=== PATIENT | female | born 1975 | race Two or more races ===

== ENCOUNTER 2016-10-29 13:52 | Emergency (ER) | payer OTHER ==
[2016-10-29 14:07] VITALS: TEMP 98.4
[2016-10-29] MEDS ORDERED: HYDROmorphONE/DILAUDID 1 MG/ML SYR IVP ONE (14:22)
[2016-10-29] MEDS ORDERED: ONDANSETRON 4 MG/2 ML VIAL IVP ONE (14:22)
[2016-10-29] MEDS ORDERED: NS 1,000 ML IV ONE ×2 (14:22)
--- NOTE | 2016-10-29 14:32 | UCPHY ---
H & P Patient Type: Established Chief Complaint Nursing Narrative: BROWN chills vomiting/diarrhea x 2 days. . Sinus inf s/s x 15 days prior Time Seen by Provider: 10/29/16 14:11 HPI/ROS: CHIEF COMPLAINT: Vomiting and diarrhea HISTORY OF PRESENT ILLNESS: The patient is a 41-year-old female who comes to the Urgent Care complaining of vomiting and diarrhea. Her symptoms began last night. She has vomited 4 times. She has not had a fever. She has had loose stools nonbloody. She had a cold last week but is not sure that it is associated. No recent travel. She does not drink unfiltered water. No recent antibiotics. No abdominal pain. REVIEW OF SYSTEMS: Constitutional: denies: chills, fever, recent illness, recent injury EENTM: denies: blurred vision, double vision, nose congestion Respiratory: denies: cough, shortness of breath Cardiac: denies: chest pain, irregular heart rate, lightheadedness, palpitations Gastrointestinal/Abdominal: See HPI Genitourinary: denies: dysuria, frequency, hematuria, pain Musculoskeletal: denies: joint pain, muscle pain Skin: denies: lesions, rash, jaundice, bruising Neurological: denies: headache, numbness, paresthesia, tingling, dizziness, weakness Hematologic/Lymphatic: denies: blood clots, easy bleeding, easy bruising Immunologic/allergic: denies: HIV/AIDS, transplant EXAM: GENERAL: Well-appearing, well-nourished and in no acute distress. HEAD: Atraumatic, normocephalic. EYES: Pupils equal round and reactive to light, extraocular movements intact, sclera anicteric, conjunctiva are normal. ENT: TMs normal, nares patent, oropharynx clear without exudates. Moist mucous membranes. NECK: Normal range of motion, supple without lymphadenopathy or JVD. LUNGS: Breath sounds clear to auscultation bilaterally and equal. No wheezes rales or rhonchi. HEART: Regular rate and rhythm without murmurs, rubs or gallops. ABDOMEN: Soft, nontender, normoactive bowel sounds. No guarding, no rebound. No masses appreciated. BACK: No CVA tenderness, no spinal tenderness, step-offs or deformities EXTREMITIES: Normal range of motion, no pitting or edema. No clubbing or cyanosis. NEUROLOGICAL: Cranial nerves II through XII grossly intact. Normal speech, normal gait. 5/5 strength, normal movement in all extremities, normal sensation PSYCH: Normal mood, normal affect. SKIN: Warm, dry, normal turgor, no visible rashes or lesions. Source: Patient - Personal History LMP (Females 10-55): 15-21 Days Ago - Medical/Surgical History Hx Asthma: No Hx Chronic Respiratory Disease: No Hx Diabetes: No Hx Cardiac Disease: No Hx Renal Disease: No Hx Cirrhosis: No Hx Alcoholism: No Hx HIV/AIDS: No Hx Splenectomy or Spleen Trauma: No Other PMH: [facility] FLU NONE. Tetanus None. Denies Med Surg HX - Family History Significant Family History: No pertinent family hx - Social History Smoking Status: Never smoked Alcohol Use: None Drug Use: None Constitutional: Initial Vital Signs Temperature (C) 36.9 C 10/29/16 13:59 Heart Rate 78 10/29/16 13:59 Respiratory Rate 16 10/29/16 13:59 Blood Pressure 92/52 L 10/29/16 13:59 O2 Sat (%) 97 10/29/16 13:59 O2 Delivery Mode Room Air Allergies/Adverse Reactions: No Known Allergies Allergy (Verified 10/29/16 14:07) Home Medications: Medication Instructions Recorded Ondansetron Odt [Zofran Odt 4 mg 4 mg PO Q4 PRN #20 tab 10/29/16 (RX)] Medical Decision Making ED Course/Re-evaluation: The patient's abdomen is benign. We will hydrate and treat with pain and nausea medication and observe and re-evaluate. 3:00 p.m. the patient is feeling well. Her abdominal exam remains benign. She is no longer nauseous after Zofran. Will prepare her paperwork or prescriptions for discharge. If she has any further problems nursing staff will notify Dr. Paez. Differential Diagnosis: Partial list of the Differential diagnosis considered include but were not limited to; gastritis, food poisoning, and although unlikely based on the history and physical exam, I also considered biliary disease, pancreatitis, appendicitis, , urinary tract infection. I discussed these differential diagnoses and the plan with the patient as well as the usual and expected course. The patient understands that the diagnosis is provisional and that in medicine we are not always correct and that further workup is often warranted. Usual and customary warnings were given. All of the patient's questions were answered. The patient was instructed to return to the emergency department should the symptoms at all worsen or return, otherwise to followup with the physician as we discussed. - Data Points Medications Given: Discontinued Medications Hydromorphone HCl (Dilaudid) 0.5 mg IVP EDNOW ONE Stop: 10/29/16 14:23 Last Admin: 10/29/16 14:43 Dose: 0.5 mg Sodium Chloride (Ns) 1,000 mls @ 0 mls/hr IV ONCE ONE PRN Reason: Wide Open Stop: 10/29/16 14:23 Last Admin: 10/29/16 14:35 Dose: 1,000 mls Sodium Chloride (Ns) 1,000 mls @ 0 mls/hr IV ONCE ONE PRN Reason: Wide Open Stop: 10/29/16 14:23 Last Admin: 10/29/16 15:10 Dose: 1,000 mls Ondansetron HCl (Zofran) 4 mg IVP EDNOW ONE Stop: 10/29/16 14:23 Last Admin: 10/29/16 14:42 Dose: 4 mg Departure - Departure Disposition: Home, Routine, Self-Care Clinical Impression: Vomiting and diarrhea Condition: Fair Instructions: Gastroenteritis (ED) Referrals: CINDY DOTSON,. [Primary Care Provider] - As per Instructions Prescriptions: Ondansetron Odt [Zofran Odt 4 mg (RX)] 4 mg PO Q4 PRN #20 tab PRN Reason: Nausea & Vomiting - PQRS PQRS Measurement: Not applicable
[2016-10-29 15:15] VITALS: BP 98/66; PULSE 65; RESP 18; O2SAT 96
== END 2016-10-29 15:34 | disposition home or self-care (01) ==
LOC: CED 13:52
DX: R11.10 Vomiting, unspecified (principal); R19.7 Diarrhea, unspecified
CPT/HCPCS: 84703-PO; 96361-PO; 96374-PO; 96375-PO; 99214-PO; G0463-PO; J1170; J2405